=== PATIENT | male | born 1980 | race Asian ===

== ENCOUNTER 2022-01-13 10:11 | Emergency (ER) | payer BC, SELFPAY ==
[2022-01-13 10:22] VITALS: BP 133/100; PULSE 70; RESP 18; TEMP 36.7; O2SAT 97; BMI 29.9
[2022-01-13 11:24] LABS: Basophils Absolute Auto 0.08 K/uL (0.00-0.30); Eosinophils Absolute Auto 0.08 K/uL (0.00-0.50); Hematocrit 44.1 % (37.0-53.0); Hemoglobin* 14.4 gm/dL (13.5-17.5); Immature Granulocytes Abs Auto 0.02 K/uL (0.00-0.30); Lymphocytes Absolute Auto 2.42 K/uL (0.90-2.90); Lymphocytes Percent Auto 31.3 % (20-44); Mean Corpuscular HGB Conc 33 gm/dL (32-36); Mean Corpuscular Hemoglobin 27 pg (26-34); Mean Corpuscular Volume 83 fL (80-100); Monocytes Percent Auto 5.8 % (0.0-11.0); Neutrophils Absolute Auto 4.69 K/uL (1.7-7.0); Neutrophils Percent Auto 60.6 % (42.0-72.0); Platelet Count* 235 K/uL (140-440); White Blood Count* 7.74 K/uL (4.50-11.00)
--- NOTE | 2022-01-13 11:34 | ED_ITS ---
HPI - General Adult General Time Seen by Provider: 11:34 Date Seen: 01/13/22 Chief complaint: Chest Pain Stated complaint: Chest pain Time Seen by Provider: 01/13/22 10:47 Source: patient History of Present Illness HPI narrative: 41-year-old male presents with 1 week history of chest pain. Pain is constant and midsternum, just to the left of the sternum at the costal sternal junction. It is made worse by standing up and feels better when he is supine or semi recumbent. Activity and eating do not changes pain. When he climbs stairs or walks she does not have any increased pain. He has not had a cough or a fever. He has somewhat increased pain when he takes a deep breath. No shortness of breath. Thinks the pain is getting better in the last couple days. He has a history of hypertension and hyperlipidemia. He does not smoke. Related Data Home Medications Medication Instructions Recorded Confirmed bupropion HCl PO 01/13/22 losartan 100 1 tab PO DAILY 01/13/22 01/13/22 mg-hydrochlorothiazide 25 mg tablet Allergies Allergy/AdvReac Type Severity Reaction Status Date / Time No Known Drug Allergies Allergy Verified 01/13/22 10:22 Review of Systems Narrative: Reports generally being healthy. No recent illness or injury. No previous history of heart disease. He does report that he is having some itching in his genitals as well. [facility] Medical History (Updated 01/13/22 @ 12:54 by Rafa Yang MD) Anxiety HTN (hypertension) Hyperlipidemia Surgical History (Updated 01/13/22 @ 10:46 by Cathleen Light RN) H/O spinal fusion Social History Smoking Status: Never smoker How often do you have a drink containing alcohol: 2-3 times a week AUDIT-C Alcohol total score: 3 Non-prescribed substance use: denies use Non-prescribed substance use details: gummy Exam Narrative: Exam Narrative: He is alert and appears in no distress. Eyes normal. Oropharynx normal. Neck is supple without mass or adenopathy. Respirations are clear to auscultation. Cardiovascular: S1, S2, regular rate and rhythm. No murmur gallop or rub. Palpation over his chest wall shows that he has mild discomfort with palpation of the 4th rib where it meets the left side of the sternum. No rash and no redness or trauma. Abdomen is soft without tenderness. Extremities with good pulses good perfusion no edema and no tenderness Const: Vital Signs, click to edit/add: Vital Signs - 24 hr 01/13/22 10:22 01/13/22 12:01 01/13/22 12:30 Temperature 98.0 F Pulse Rate [Left P ulse Oximeter] 70 70 70 Respiratory Rate 18 18 20 Blood Pressure [Le ft Upper Arm] 133/100 H 110/67 129/91 H Pulse Oximetry 97 93 98 Documenting provider has reviewed patient's vital signs: yes Course Vital Signs Vital signs: Initial Vital Signs Temperature 98.0 F 01/13/22 10:22 Temperature Source Temporal Artery Scan 01/13/22 10:22 Pulse Rate 70 01/13/22 10:22 Respiratory Rate 18 01/13/22 10:22 Blood Pressure 133/100 H 01/13/22 10:22 Blood Pressure Mean 111 01/13/22 10:22 Pulse Oximetry 97 01/13/22 10:22 Oxygen Delivery Method 01/13/22 10:22 Vital Signs Temperature 98.0 F 01/13/22 10:22 Pulse Rate 70 01/13/22 10:22 Respiratory Rate 18 01/13/22 10:22 Blood Pressure 133/100 H 01/13/22 10:22 Pulse Oximetry 97 01/13/22 10:22 Temperature 98.0 F 01/13/22 10:22 Pulse Rate 70 01/13/22 12:30 Respiratory Rate 20 01/13/22 12:30 Blood Pressure 129/91 H 01/13/22 12:30 Pulse Oximetry 98 01/13/22 12:30 Medical Decision Making Lab Data Labs: Lab Results 01/13/22 01/13/22 01/13/22 Range/Units 11:05 11:05 11:05 WBC 7.74 (4.50-11.00) K/uL RBC 5.30 (4.30-5.90) m/uL Hgb 14.4 (13.5-17.5) gm/dL Hct 44.1 (37.0-53.0) % MCV 83 (80-100) fL MCH 27 (26-34) pg MCHC 33 (32-36) gm/dL RDW Coeff of Kevin 12.0 (11.5-15.5) % Plt Count 235 (140-440) K/uL Neut % (Auto) 60.6 (42.0-72.0) % Lymph % (Auto) 31.3 (20-44) % [place] % (Auto) 5.8 (0.0-11.0) % Eos % (Auto) 1.0 (0.0-7.0) % Baso % (Auto) 1.0 (0.0-3.0) % Neut # (Auto) 4.69 (1.7-7.0) K/uL Lymph # (Auto) 2.42 (0.90-2.90) K/uL [place] # (Auto) 0.40 (0.00-0.90) K/UL Eos # (Auto) 0.08 (0.00-0.50) K/uL Baso # (Auto) 0.08 (0.00-0.30) K/uL Abs Immat Gran (auto) 0.02 (0.00-0.30) K/uL D-Dimer Quant (PE/DVT) < 0.27 (0.00-0.50) ug/ml Sodium 138 (135-149) mmol/L Potassium 3.7 (3.6-5.1) mmol/L Chloride 106 (96-114) mmol/L Carbon Dioxide 30 (20-32) mmol/L BUN 16 (5-24) mg/dL Creatinine 1.0 (0.5-1.5) mg/dL Estimated Creat Clear 85.95 Glucose 119 H (60-115) mg/dL Calcium 9.1 (8.4-10.6) mg/dL Troponin I < 0.01 L (0.01-0.04) ng/mL C-Reactive Protein < 0.5 L (0.5-1.0) mg/dL ECG Data Attestation: I personally reviewed and interpreted this ECG as follows: ( normal electrocardiogram including normal sinus rhythm with normal axis, normal rate of [address]-T segments and normal T-waves) Discharge Plan Discharge Clinical Impression: Costalchondritis, Chest pain Patient Disposition: Home, Self-Care Condition: Stable Additional Instructions: I think her chest pain is likely due to pain where your ribs me your breast bone. This it is commonly called costal chondritis. No specific treatment is needed for this. You may take Tylenol or ibuprofen as needed for pain. Avoid activities that make the pain worse. Return to the emergency department if you have trouble breathing or if you developed chest pain that gets worse with activity Activity Level: Activity as Tolerated Prescriptions: No Action losartan-hydrochlorothiazide 100-25 mg tablet 1 tab PO DAILY 0RF bupropion HCl [Wellbutrin] PO 0RF Follow Up/Referrals: Almas Hager MD [Primary Care Provider] - Stand Alone Forms: [facility] Info Instructions
[2022-01-13 11:49] LABS: Chloride* 106 mmol/L (96-114); Potassium* 3.7 mmol/L (3.6-5.1); Sodium* 138 mmol/L (135-149)
[2022-01-13 11:52] LABS: Carbon Dioxide* 30 mmol/L (20-32); Est. Creatinine Clearance* 85.95; Estimated Glomerular Filt Rate 95.77
[2022-01-13 11:53] LABS: Blood Urea Nitrogen* 16 mg/dL (5-24); Calcium* 9.1 mg/dL (8.4-10.6); Glucose* 119 mg/dL (60-115)
[2022-01-13 12:01] VITALS: BP 110/67; PULSE 70; RESP 18; O2SAT 93
[2022-01-13 12:09] LABS: C Reactive Protein* < 0.5 mg/dL (0.5-1.0); Troponin I* < 0.01 ng/mL (0.01-0.04)
[2022-01-13 12:18] LABS: D Dimer Quantitative* < 0.27 ug/ml (0.00-0.50)
--- NOTE | 2022-01-13 12:21 | CRLHL7_ITS ---
For Patients: As a result of the Century Cures Act, medical imaging exams and procedure reports are released immediately into your electronic medical record. You may view this report before your referring provider. If you have questions, please contact your health care provider. INDICATION: Chest pain TECHNIQUE: Chest 2 views COMPARISON: 06/14/2018 FINDINGS: Cardiovascular and mediastinum: Heart size and vasculature are normal in caliber and appearance. Lungs and pleural spaces: Lungs are clear. No sign of infiltrate or mass. No sign of pleural effusion. No pneumothorax. Bones and soft tissues: Postop changes lower cervical spine. IMPRESSION: No acute findings and no significant changes from the prior exam. Dictated by Major Tejeda MD @ 01/13/2022 1:48:27 PM (Electronically Signed)
[2022-01-13 12:30] VITALS: BP 129/91; PULSE 70; RESP 20; O2SAT 98
[2022-01-13 14:38] LABS: Slide Review Reflex No
== END 2022-01-13 13:15 | disposition home or self-care (01) ==
PROVIDERS: Emergency Provider Family Medicine; PCP Family Medicine
DX: M94.0 Chondrocostal junction syndrome [Tietze] (principal)
CPT/HCPCS: 36415; 71046; 80048; 84484; 85025; 85379; 86140; 93005; 99284; 99285

== ENCOUNTER 2022-08-11 12:37 | Outpatient (CLI) | payer BC, SELFPAY ==
[2022-08-11 13:39] LABS: Chloride* 104 mmol/L (96-114); Sodium* 140 mmol/L (135-149)
[2022-08-11 13:41] LABS: Cholesterol* 197 mg/dL (90-199); Creatinine* 1.1 mg/dL (0.5-1.5); Estimated Glomerular Filt Rate 85 ml/min
[2022-08-11 13:42] LABS: Blood Urea Nitrogen* 18 mg/dL (5-24); Calcium* 9.4 mg/dL (8.4-10.6); Carbon Dioxide* 29 mmol/L (20-32); Glucose* 101 mg/dL (60-115); Triglycerides* 139 mg/dL (40-149)
[2022-08-11 13:58] LABS: HDL Cholesterol* 38 mg/dL (>=40); LDL Cholesterol Calculated 131 mg/dL (<100)
== END 2022-08-11 12:38 | disposition home or self-care (01) ==
PROVIDERS: PCP Family Medicine; Visit Provider Family Medicine
DX: Z00.00 Encounter for general adult medical examination without abnormal findings (principal); I10 Essential (primary) hypertension; E78.5 Hyperlipidemia, unspecified
CPT/HCPCS: 80048; 80061

== ENCOUNTER 2023-11-04 10:05 | Outpatient (CLI) | payer OTHER, SELFPAY | END 2023-11-04 10:06 | disposition home or self-care (01) | LOC: NFLDREF 11-05 06:16 | PROVIDERS: PCP Family Medicine; Referring Provider Family Medicine; Visit Provider Family Medicine | DX: I10 Essential (primary) hypertension (principal); Z13.1 Encounter for screening for diabetes mellitus; Z13.220 Encounter for screening for lipoid disorders | CPT/HCPCS: 80053; 80061 ==

== ENCOUNTER 2023-11-29 08:00 | Outpatient (CLI) | payer OTHER, SELFPAY ==
--- NOTE | 2023-11-29 09:14 | W.ANESCHARGE ---
Anesthesia Charges Start Date/Time Anesthesia Start Date: 11/29/23 Anesthesia Start Time: 09:05 Stop Date/Time Anesthesia Stop Date: 11/29/23 Anesthesia Stop Time: 09:34
--- NOTE | 2023-11-29 09:45 | W.ANESCHARGE ---
Anesthesia Charges Start Date/Time Anesthesia Start Date: 11/29/23 Anesthesia Start Time: 09:05 Stop Date/Time Anesthesia Stop Date: 11/29/23 Anesthesia Stop Time: 09:34
== END 2023-11-29 08:01 | disposition home or self-care (01) ==
LOC: OP CLINIC 08:01
PROVIDERS: PCP Family Medicine; Visit Provider Surgery
DX: Z12.11 Encounter for screening for malignant neoplasm of colon (principal); K63.5 Polyp of colon; K62.1 Rectal polyp; K64.4 Residual hemorrhoidal skin tags; K57.30 Diverticulosis of large intestine without perforation or abscess without bleeding; Z83.719 Family history of colon polyps, unspecified
CPT/HCPCS: 00811; 45385; 88305; J2704

== ENCOUNTER 2024-03-08 07:58 | Outpatient (CLI) | payer OTHER, SELFPAY | END 2024-03-08 07:59 | disposition home or self-care (01) | LOC: NFLDREF 03-09 10:51 | PROVIDERS: PCP Family Medicine; Referring Provider Family Medicine; Visit Provider Family Medicine | DX: E78.00 Pure hypercholesterolemia, unspecified (principal) | CPT/HCPCS: 80061; 80076 ==

== ENCOUNTER 2024-12-01 08:23 | Outpatient (CLI) | payer OTHER, SELFPAY | END 2024-12-01 08:24 | disposition home or self-care (01) | LOC: NFLDREF 12-12 07:07 | PROVIDERS: PCP Family Medicine; Referring Provider Family Medicine; Visit Provider Family Medicine | DX: Z00.01 Encounter for general adult medical examination with abnormal findings (principal); R76.8 Other specified abnormal immunological findings in serum; E78.00 Pure hypercholesterolemia, unspecified; I10 Essential (primary) hypertension; Z11.59 Encounter for screening for other viral diseases | CPT/HCPCS: 80048; 80061; 80076; 86704; 86705; 86706; 87340 ==

== ENCOUNTER 2024-12-07 13:05 | Outpatient (CLI) | payer OTHER, SELFPAY | END 2024-12-07 13:06 | disposition home or self-care (01) | PROVIDERS: PCP Family Medicine; Visit Provider Family Medicine | DX: R76.8 Other specified abnormal immunological findings in serum (principal); Z11.59 Encounter for screening for other viral diseases | CPT/HCPCS: 86803; 87517 ==

== ENCOUNTER 2024-12-19 06:54 | Outpatient (CLI) | payer OTHER, SELFPAY ==
--- NOTE | 2024-12-19 07:15 | CRLHL7_ITS ---
For Patients: As a result of the Century Cures Act, medical imaging exams and procedure reports are released immediately into your electronic medical record. You may view this report before your referring provider. If you have questions, please contact your health care provider. INDICATION: elevated LFTs COMPARISON: none TECHNIQUE: Real time oconnell scale imaging and color Doppler analysis was performed of the right upper quadrant. FINDINGS: Liver measures 14.8 cm. Increased echotexture of the hepatic parenchyma is noted. No intrahepatic mass. There is a normal appearance of the hepatic IVC and proximal abdominal aorta. There is no evidence of ascites. The gallbladder is of normal size and there is no evidence of intraluminal stones or sludge. The gallbladder wall measures 2 mm in thickness. The common bile duct is of normal size and measures 5 mm in diameter at the level of the kedar hepatis. The pancreas is obscured by bowel gas. There is no evidence of a stone or hydronephrosis within the right kidney. The right kidney measures 11.4 cm in length. IMPRESSION: Diffuse hepatic steatosis. Remainder unremarkable. Dictated by Major Tejeda MD @ 12/19/2024 8:36:40 AM (Electronically Signed)
== END 2024-12-19 06:55 | disposition home or self-care (01) ==
LOC: US 06:55
PROVIDERS: PCP Family Medicine; Visit Provider Family Medicine
DX: R79.89 Other specified abnormal findings of blood chemistry (principal); K76.0 Fatty (change of) liver, not elsewhere classified
CPT/HCPCS: 76705